=== PATIENT | female | born 1955 | race Caucasian/White ===

== ENCOUNTER 2016-08-15 15:12 | Inpatient (IN) | payer MEDICARE, OTHER ==
[~2016-08-15] VITALS: Ht 152.4 cm; Wt 44.5 kg
--- NOTE | 2016-08-15 15:20 | NUR ---
DR ZHU AT THE BEDSIDE FOR EVAL AND EXAM.
[2016-08-15] MEDS ORDERED: diphenhydrAMINE 50 MG/1 ML VIAL IM ONE (15:30)
[2016-08-15] MEDS ORDERED: HALOPERIDOL LACTATE 5 MG/1 ML VIAL IM ONE (15:30)
[2016-08-15] MEDS ORDERED: LORA-258 PO (15:34)
[2016-08-15] MEDS ORDERED: QUET25TA PO (15:34)
[2016-08-15] MEDS ORDERED: ACET650T10 PO (15:34)
[2016-08-15] MEDS ORDERED: ASPI81TA31 PO (15:34)
[2016-08-15] MEDS ORDERED: DIVA250T4 PO (15:34)
[2016-08-15] MEDS ORDERED: BENZ2TAB7 PO (15:34)
[2016-08-15] MEDS ORDERED: BENZ2AMP3 PO (15:34)
[2016-08-15] MEDS ORDERED: TEMA7.5C PO (15:34)
[2016-08-15] MEDS ORDERED: PANT40TA2 PO (15:34)
[2016-08-15] MEDS ORDERED: diphenhydrAMINE 50 MG/1 ML VIAL ONE (15:36)
[2016-08-15] MEDS ORDERED: HALOPERIDOL LACTATE 5 MG/1 ML VIAL ONE (15:36)
--- NOTE | 2016-08-15 16:05 | NUR ---
PT REMAINS AGITATED, AWRE. INCREASED OBSERVATION.
--- NOTE | 2016-08-15 16:10 | NUR ---
TRIED MULTIPLE TIMES TO DO EKG ON PT, BUT SOON PT IS TOUCHED SHE START SWINGING AND KICKING AT STAFF. PT ALSO WILL NOT ALLOW BLOOD DRAW. AWARE.
[2016-08-15] MEDS ORDERED: LORAZEPAM 2 MG/1 ML VIAL ONE ×2 (16:15→19:40)
[2016-08-15] MEDS ORDERED: LORAZEPAM 2 MG/1 ML VIAL IM ONE ×2 (16:15→19:30)
--- NOTE | 2016-08-15 16:40 | NUR ---
PT IS RESTING W/ BOTH EYES CLOSED IN POSTION, STILL BECOMES AGITATED WHEN TOUCHED AND AGGRESSIVE, MD NOTIFIED.
[2016-08-15] MEDS ORDERED: OLANZAPINE 10 MG VIAL IM ONE ×2 (16:45→16:52)
[2016-08-15] MEDS ORDERED: chlorproMAZINE 50 MG/2 ML AMPUL IM ONE (17:15)
[2016-08-15] MEDS ORDERED: chlorproMAZINE 50 MG/2 ML AMPUL ONE (17:29)
[2016-08-15 17:35] LABS: BASOPHILS # (AUTO) 0.1 K/uL (0.0-8.0); EOSINOPHILS # (AUTO) 0.1 K/uL (0.0-0.7); EOSINOPHILS % (AUTO) 1.5 % (0.0-7.0); HEMATOCRIT 36.8 % (37-47); HEMOGLOBIN 12.4 G/DL (12.0-16.0); LYMPHOCYTES # (AUTO) 1.6 K/UL (0.8-4.8); LYMPHOCYTES % (AUTO) 25.8 % (20.5-51.5); MEAN CORPUSCULAR HEMOGLOBIN 31.1 UUG (27.0-31.0); MEAN CORPUSCULAR HGB CONC 34 g/dL (32.0-37.0); MEAN CORPUSCULAR VOLUME 92.8 FL (81.0-99.0); MONOCYTES # (AUTO) 0.6 K/UL (0.1-1.30); MONOCYTES % (AUTO) 9.6 % (0.0-11.0); NEUTROPHILS # (AUTO) 3.8 K/UL (1.8-8.9); NEUTROPHILS % (AUTO) 61.1 % (38.5-71.5); PLATELET COUNT (AUTO) 420 K/UL (150-450); RED BLOOD CELL COUNT(AUTO) 3.97 MIL/UL (4.2-5.4); WHITE BLOOD COUNT (AUTO) 6.2 K/UL (4.0-11.2)
--- NOTE | 2016-08-15 17:44 | NUR ---
FOOD AND FLUIDS PROVIDED, NO PROBLEM W/ SWALLOWING. PT STILL REFUSED TO HAVE EKG DONE.
[2016-08-15 17:49] LABS: CARBON DIOXIDE 28 mmol/L (21-32); CHLORIDE 106 mmol/L (98-107); CREATININE 0.6 mg/dL (0.6-1.3); GLUCOSE 126 mg/dL (74-106); POTASSIUM 4.4 mmol/L (3.5-5.1); UREA NITROGEN, BLOOD 16 mg/dL (7-18)
[2016-08-15 17:56] LABS: ACETAMINOPHEN 3.4 ug/mL (10-30); ALANINE AMINOTRANSFERASE 20 U/L (14-59); ALKALINE PHOSPHATASE 97 U/L (50-136); ASPARTATE AMINOTRANSFERASE 18 U/L (15-37); BILIRUBIN,DIRECT < 0.1 mg/dL (0.0-0.2); BILIRUBIN,TOTAL 0.1 mg/dL (0.2-1.0); TOTAL PROTEIN, SERUM 6.5 g/dL (6.4-8.2)
[2016-08-15 18:04] LABS: ETHANOL < 3 MG/DL (0-0)
--- NOTE | 2016-08-15 18:10 | NUR ---
DR ZHU MEDICALLY CLEARED THE PT, REGAREDLESS OF CT, CXRAY AND URINE, SINCE PT BECOMES COMBATIVE WHEN TOUCHED. SPOKE TO SARAI PETIT FROM PET, ETA 30 MIN.
--- NOTE | 2016-08-15 18:16 | NUR ---
[facility]SA COLLECTED AND SENT TO LAB, BELONGING LIST COMPLETED.
[2016-08-15] MEDS ORDERED: LORAZEPAM 2 MG/1 ML VIAL IV ONE (19:30)
[2016-08-15 19:32] LABS: *BILIRUBIN,URIN NEGATIVE (NEGATIVE); *BLOOD, URINE 1+ (NEGATIVE); *CLARITY,URINE CLEAR (CLEAR); *COLOR,URINE YELLOW (YELLOW); *KETONES,URINE NEGATIVE (NEGATIVE); *PROTEIN,URINE NEGATIVE (NEGATIVE); *UROBILINOGEN,URINE 0.2 E.U./dl (NORMAL); LEUKOCYTE ESTERASE ,URINE 1+ (NEGATIVE); NITRITE, URINE NEGATIVE (NEGATIVE); UGLUCOSE NEGATIVE (NEGATIVE)
--- NOTE | 2016-08-15 19:38 | NUR ---
Assumed care of patient from Velma DINH. Patient in bed, no complaint of pain noted. urine collected via in and out cath.
[2016-08-15 19:46] LABS: *AMPHETAMINE, URINE NEGATIVE (NEGATIVE); *BARBITURATE, URINE NEGATIVE (NEGATIVE); *CANNABINOID, URINE NEGATIVE (NEGATIVE); *COCCAINE, URINE NEGATIVE (NEGATIVE); *OPIATE, URINE NEGATIVE (NEGATIVE); *PHENCYCLIDINE SCREEN,URINE NEGATIVE (NEGATIVE)
[2016-08-15 19:55] LABS: BACTERIA,URINE FEW /HPF (NONE SEEN); SQUAMOUS EPITHELIAL CELL,UR FEW /HPF (NONE SEEN)
--- NOTE | 2016-08-15 20:00 | NUR ---
Patient is in need of 1 to 1 sitter. No sitter available at this time. enginehouse brakeman aware.
--- NOTE | 2016-08-15 20:02 | NUR ---
JOYCE c/w UTI. Will give IM shot of CTX now (no access) and recommend keflex 500mg PO TID x 5 days. Addendum: 08/15/16 at 2001 by DION Medically stable for psychiatric evaluation.
[2016-08-15] MEDS ORDERED: CEFTRIAXONE 1 G VIAL IM ONE (20:15)
[2016-08-15] MEDS ORDERED: CEFTRIAXONE 1 G VIAL ONE (20:58)
--- NOTE | 2016-08-15 21:30 | NUR ---
CLINICAL PHARMACY MANAGER AWARE OF 1 TO 1 SITTER NEEDS. NO SITTER AVAILABLE AT THIS TIME.
--- NOTE | 2016-08-15 22:59 | NUR ---
Patient had an episode of witnessed and assisted fall, no injury noted. No signs of injury /pain noted. Neurocheckzakiya LO. Call placed to Dr Richards for notification of incident. Addendum: 08/15/16 at 2305 by CAROL Patient had an episode of unwitnessed and unassisted fall, no injury noted. No signs of injury /pain noted. Neurocheckzakiya Alecia. Call placed to Dr Richards for notification of incident. Per patients roomate in 2b, patients head came in contact with one of the siderails from the [facility]. no bruising noted. ER aware, will continue to monitor.
--- NOTE | 2016-08-15 23:14 | NUR ---
Pt. admitted to MHU overflow , under care of Dr. Alvarez/Susie. Dx: Psychosis. Oh hold 5150 for Gravely Disabled, Danger to others. Belongs List completed
--- NOTE | 2016-08-15 23:22 | NUR ---
Dr Richards called back. no orders at this time. Continue to monitor on MHU overflow.
[2016-08-15 23:30] VITALS: BP 95/65
[2016-08-15] MEDS ORDERED: MAG HYDROX/AL HYDROX/SIMETH 30 ML LIQUID UDC PO PRN (23:30)
[2016-08-15] MEDS ORDERED: MAGNESIUM HYDROXIDE 30 ML LIQUID UDC PO PRN (23:30)
[2016-08-15] MEDS ORDERED: Medication Not On Formulary EA (Acetaminophen 650 MG) PO SCH (23:30)
--- NOTE | 2016-08-15 23:30 | NUR ---
Received patient from ER via [facility]. Dx: Psychosis under care of Dr. Richards and Dr. Alvarez. Patient is on 5150 hold expires 08/18/16 at 20:15. Patient is in no distress. Will continue to monitor.
[2016-08-16 04:00] VITALS: BP 96/65
[2016-08-16] MEDS ORDERED: ACETAMINOPHEN 325 MG TABLET PO PRN (08:00)
[2016-08-16] MEDS: PANTOPRAZOLE SODIUM 40 MG TABLET.DR PO SCH (08:13)
[2016-08-16] MEDS: ASPIRIN 81 MG TAB.CHEW PO SCH (08:13)
[2016-08-16 08:30] VITALS: BP 121/81
[2016-08-16] MEDS: LORAZEPAM 0.5 MG TABLET PO PRN ×2 (10:16→17:33)
--- NOTE | 2016-08-16 11:01 | NUR ---
pt is restless and getting out of bed ativan 0.5 mg po given per md orders.
[2016-08-16 12:00] VITALS: BP 98/62
[2016-08-16 13:00] VITALS: BP 107/71
--- NOTE | 2016-08-16 13:00 | NUR ---
GPS: Nursing Notes: Receiving Overflow Patient: Patient transfer from 2nd floor to room # 137-A, V/S: 107/71, 108, 18, 0/10, patient is selectively mute, poor impulse control, confused, disoriented, impaired judgment, poor insight, restless at times, redirected and reoriented during shift, on fall precautions, continue to monitor for safety, Dr. Richards examined the patient, no further orders were given.
--- NOTE | 2016-08-16 13:15 | NUR ---
transfer the pt to u via wheel chair in stable condition.
[2016-08-16] MEDS: BENZTROPINE MESYLATE 0.5 MG TABLET PO SCH ×2 (14:13→17:33)
[2016-08-16] MEDS: ACETAMINOPHEN 325 MG TABLET PO PRN (14:13)
[2016-08-16] MEDS: DIVALPROEX 250 MG TABLET.DR PO SCH ×2 (14:13→20:17)
[2016-08-16 16:00] VITALS: BP 92/58
[2016-08-16] MEDS: Z GUARD REMEDY PASTE 57 GM TUBE TOP SCH ×2 (17:29→20:21)
[2016-08-16 20:04] VITALS: BP 103/68
[2016-08-16] MEDS: QUETIAPINE FUMARATE 25 MG TABLET PO SCH (20:21)
--- NOTE | 2016-08-16 22:00 | NUR ---
received to care, up in jj chair, appearing restless at times, selectively mute. compliant with medications and staff direction. bedtime snack given. assisted to bed. as of 2200, she remains awake. no dsitress noted, will continue to monitor closely.
[2016-08-16] MEDS: ZOLPIDEM 5 MG TABLET PO PRN (22:19)
--- NOTE | 2016-08-16 22:19 | NUR ---
PRN ambien given, for insomnia.
--- NOTE | 2016-08-16 23:00 | NUR ---
appears to be asleep. no distress noted.
--- NOTE | 2016-08-17 06:00 | NUR ---
slept 8.5 hours. no distress noted.
[2016-08-17] MEDS: PANTOPRAZOLE SODIUM 40 MG TABLET.DR PO SCH (06:59)
[2016-08-17 07:30] VITALS: BP 98/69
[2016-08-17] MEDS: BENZTROPINE MESYLATE 0.5 MG TABLET PO SCH ×2 (09:35→17:28)
[2016-08-17] MEDS: DIVALPROEX 250 MG TABLET.DR PO SCH ×2 (09:35→20:21)
[2016-08-17] MEDS: ASPIRIN 81 MG TAB.CHEW PO SCH (09:35)
[2016-08-17] MEDS: Z GUARD REMEDY PASTE 57 GM TUBE TOP SCH ×2 (09:37→20:22)
--- NOTE | 2016-08-17 11:42 | NUR ---
Initial discharge instructions: Pt was residing at [facility] [[id number] [place] [address]].Spoke with Cliff at the facility who stated the pt will be needing a locked SNF due to elopement.Therefore,pt will be needing a SNF placement.Spoke with pt's ,Isaac [phone] who was informed [facility] will not be accepted back.SW will speak with pt,family,and MD regarding appropriate discharge plan.SW will form a safe and proper discharge.
[2016-08-17 16:00] VITALS: BP 96/63
--- NOTE | 2016-08-17 17:50 | NUR ---
GPS/RN- Lipid panel Dr Richards aware of patients elevated Lipid panel. no orders received at this time.
[2016-08-17] MEDS: MUPIROCIN 2% OINT 22 GM TUBE NS SCH (20:21)
[2016-08-17] MEDS: QUETIAPINE FUMARATE 25 MG TABLET PO SCH (20:21)
[2016-08-18] MEDS: PANTOPRAZOLE SODIUM 40 MG TABLET.DR PO SCH (06:25)
[2016-08-18 06:53] VITALS: BP 96/62
[2016-08-18 07:41] VITALS: BP 114/63
[2016-08-18] MEDS: BENZTROPINE MESYLATE 0.5 MG TABLET PO SCH ×2 (08:05→16:01)
[2016-08-18] MEDS: ASPIRIN 81 MG TAB.CHEW PO SCH (08:05)
[2016-08-18] MEDS: DIVALPROEX 250 MG TABLET.DR PO SCH ×2 (08:05→20:13)
[2016-08-18] MEDS: MUPIROCIN 2% OINT 22 GM TUBE NS SCH ×3 (08:06→20:14)
[2016-08-18] MEDS: Z GUARD REMEDY PASTE 57 GM TUBE TOP SCH ×2 (10:59→20:13)
[2016-08-18] MEDS: LORAZEPAM 1 MG TABLET PO PRN ×3 (12:07→21:26)
--- NOTE | 2016-08-18 12:51 | NUR ---
WOUND CARE CONSULT: PT BECOMES AGITATED AND COMBATIVE AT TIMES. SITTER AT BEDSIDE. MAYITO SCORE IS 19. RECOMMEND Z GUARD FOR LEFT BUTTOCK EXCORIATED AREA. KEEP SKIN CLEAN AND DRY. DISCUSSED WITH NURSING STAFF. PT ON COMFORT GEL MATTRESS. CONTINUE ALL SKIN PROTECTION MEASURES. MD IN AGREEMENT WITH PLAN OF CARE. Addendum: 08/18/16 at 1252 by ALEJANDRA KRISHNAMURTHY RN Amended: Links added.
[2016-08-18 16:20] VITALS: BP 112/63
--- NOTE | 2016-08-18 16:33 | NUR ---
PT IS VERY RESTLESS JUMPING OUT OF BED SCRATCHING THE STAFF PER MD ORDERS ATIVAN 1 MG PO GIVEN
--- NOTE | 2016-08-18 16:35 | NUR ---
PT REFUSED THE V/S
[2016-08-18 20:00] VITALS: BP 120/65
[2016-08-18] MEDS: QUETIAPINE FUMARATE 25 MG TABLET PO SCH (20:13)
[2016-08-18] MEDS: ACETAMINOPHEN 325 MG TABLET PO PRN (20:13)
[2016-08-19] MEDS: PANTOPRAZOLE SODIUM 40 MG TABLET.DR PO SCH (06:35)
--- NOTE | 2016-08-19 06:38 | NUR ---
PATIENT ASLEEP IN BED. SITTER AT BEDSIDE. PATIENT SLEPT A TOTAL OF 5 HOURS. ALL NEEDS ATTENDED.
[2016-08-19] MEDS: DIVALPROEX 250 MG TABLET.DR PO SCH ×2 (08:02→20:24)
[2016-08-19] MEDS: BENZTROPINE MESYLATE 0.5 MG TABLET PO SCH ×2 (08:02→16:16)
[2016-08-19] MEDS: ASPIRIN 81 MG TAB.CHEW PO SCH (08:03)
[2016-08-19] MEDS: Z GUARD REMEDY PASTE 57 GM TUBE TOP SCH ×2 (08:21→20:24)
[2016-08-19] MEDS: LORAZEPAM 1 MG TABLET PO PRN ×3 (08:21→19:22)
[2016-08-19] MEDS: MUPIROCIN 2% OINT 22 GM TUBE NS SCH ×2 (08:22→20:23)
[2016-08-19 08:26] VITALS: BP 98/71
--- NOTE | 2016-08-19 12:55 | NUR ---
PT IS COMBATIVE HITTING THE SITTER PER MD ORDERS ATIVAN 1MG PO GIVEN
[2016-08-19 15:08] VITALS: BP 120/75
--- NOTE | 2016-08-19 19:25 | NUR ---
RECEIVED PATIENT VERY AGITATED AND COMBATIVE. PATIENT CONTINUOUSLY CLIMBING OOB AND WHEN APPROACHED BECOMES COMBATIVE TOWARDS STAFF. PATIENT GIVEN ATIVAN 1MG PO PRN FOR AGITATION CRUSHED WITH CHOCOLATE PUDDING. PATIENT HAS VERY GOOD APPETITE AND COOPERATIVE WITH TAKING MEDICATION. 1:1 SITTER AT BEDSIDE. PATIENT REFUSED VITALS. WILL CONTINUE TO MONITOR.
[2016-08-19] MEDS: QUETIAPINE FUMARATE 25 MG TABLET PO SCH (20:23)
[2016-08-20 04:00] VITALS: BP 93/66
[2016-08-20] MEDS: PANTOPRAZOLE SODIUM 40 MG TABLET.DR PO SCH (06:28)
--- NOTE | 2016-08-20 06:38 | NUR ---
PATIENT ASLEEP IN BED. SITTER AT BEDSIDE. PATIENT SLEPT 5 HOURS AND 45 MINUTES. BED ALARM ON. CALL LIGHT IN REACH. ALL NEEDS ATTENDED.
[2016-08-20 07:27] VITALS: BP 102/64
[2016-08-20] MEDS: ASPIRIN 81 MG TAB.CHEW PO SCH (08:00)
[2016-08-20] MEDS: MUPIROCIN 2% OINT 22 GM TUBE NS SCH ×2 (08:00→20:03)
[2016-08-20] MEDS: DIVALPROEX 250 MG TABLET.DR PO SCH (08:00)
[2016-08-20] MEDS: BENZTROPINE MESYLATE 0.5 MG TABLET PO SCH ×2 (08:00→16:20)
[2016-08-20] MEDS: Z GUARD REMEDY PASTE 57 GM TUBE TOP SCH ×2 (08:01→20:06)
[2016-08-20] MEDS: LORAZEPAM 1 MG TABLET PO PRN (12:01)
[2016-08-20 15:17] VITALS: BP 100/64
--- NOTE | 2016-08-20 19:30 | NUR ---
REFUSED BP TAKEN. WHEN ATTEMPTED, STARTED TO STRIKE OUT. WANTED TO GET OUT OF BED. SAFETY INITIATED. 1:1 SITTER AT BEDSIDE. WILL CONTINUE TO MONITOR.
[2016-08-20 20:00] VITALS: BP 120/60
[2016-08-20] MEDS: QUETIAPINE FUMARATE 25 MG TABLET PO SCH (20:06)
[2016-08-20] MEDS: DIVALPROEX SPRINKLE 125 MG CAP.SPRINK PO SCH (20:06)
[2016-08-20] MEDS: ZOLPIDEM 5 MG TABLET PO PRN (22:14)
--- NOTE | 2016-08-21 06:14 | NUR ---
PATIENT ABLE TO SLEEP FOR A TOTAL OF 8.5 HOURS. NO ACUTE DISTRESS NOTED. CONFUSED, NEEDS CONSTANT REDIRECTION. CONTINUES WITH 1: SITTER AT BEDSIDE. KEPT CLEAN AND DRY. NEEDS ATTENDED
[2016-08-21] MEDS: PANTOPRAZOLE SODIUM 40 MG TABLET.DR PO SCH (06:25)
[2016-08-21 08:00] VITALS: BP 99/62
[2016-08-21] MEDS: BENZTROPINE MESYLATE 0.5 MG TABLET PO SCH ×2 (08:43→16:06)
[2016-08-21] MEDS: DIVALPROEX 250 MG TABLET.DR PO SCH (08:43)
[2016-08-21] MEDS: ASPIRIN 81 MG TAB.CHEW PO SCH (08:43)
[2016-08-21] MEDS: MUPIROCIN 2% OINT 22 GM TUBE NS SCH ×2 (08:44→20:36)
[2016-08-21] MEDS: Z GUARD REMEDY PASTE 57 GM TUBE TOP SCH ×2 (08:44→20:36)
--- NOTE | 2016-08-21 10:28 | NUR ---
PATIENT SEEN AND EXAMINED BY DR WALKER WITH NEW ORDERS AND NOTED.
[2016-08-21 11:42] VITALS: BP 108/64
[2016-08-21] MEDS: QUETIAPINE FUMARATE 25 MG TABLET PO SCH (16:06)
[2016-08-21 19:27] VITALS: BP 117/87
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
[2016-08-21] MEDS: DIVALPROEX SPRINKLE 125 MG CAP.SPRINK PO SCH (20:36)
[2016-08-22 04:26] VITALS: BP 99/63
[2016-08-22] MEDS: PANTOPRAZOLE SODIUM 40 MG TABLET.DR PO SCH (06:11)
[2016-08-22 06:48] LABS: BASOPHILS # (AUTO) 0.1 K/uL (0.0-8.0); EOSINOPHILS # (AUTO) 0.2 K/uL (0.0-0.7); EOSINOPHILS % (AUTO) 3.6 % (0.0-7.0); HEMATOCRIT 38.7 % (37-47); HEMOGLOBIN 12.5 G/DL (12.0-16.0); LYMPHOCYTES # (AUTO) 1.6 K/UL (0.8-4.8); LYMPHOCYTES % (AUTO) 28.3 % (20.5-51.5); MEAN CORPUSCULAR HGB CONC 32 g/dL (32.0-37.0); MEAN CORPUSCULAR VOLUME 92.7 FL (81.0-99.0); MONOCYTES # (AUTO) 0.5 K/UL (0.1-1.30); NEUTROPHILS # (AUTO) 3.4 K/UL (1.8-8.9); NEUTROPHILS % (AUTO) 58.1 % (38.5-71.5); PLATELET COUNT (AUTO) 395 K/UL (150-450); RED BLOOD CELL COUNT(AUTO) 4.17 MIL/UL (4.2-5.4); WHITE BLOOD COUNT (AUTO) 5.8 K/UL (4.0-11.2)
--- NOTE | 2016-08-22 06:50 | NUR ---
PT SLEPT WELL, 8 HRS PER SHIFT. NO ACUTE DISTRESS NOTED. 1:1 SITTER FOR SAFETY. ALL NEEDS MET. SAFETY MAINTAINED.
[2016-08-22 07:05] LABS: CREATININE 0.6 mg/dL (0.6-1.3); POTASSIUM 4.4 mmol/L (3.5-5.1)
[2016-08-22] MEDS: ASPIRIN 81 MG TAB.CHEW PO SCH (08:58)
[2016-08-22] MEDS: QUETIAPINE FUMARATE 25 MG TABLET PO SCH (08:59)
[2016-08-22] MEDS: Z GUARD REMEDY PASTE 57 GM TUBE TOP SCH ×2 (08:59→21:00)
[2016-08-22] MEDS: BENZTROPINE MESYLATE 0.5 MG TABLET PO SCH ×2 (08:59→16:31)
[2016-08-22] MEDS: DIVALPROEX 250 MG TABLET.DR PO SCH (08:59)
[2016-08-22] MEDS: MUPIROCIN 2% OINT 22 GM TUBE NS SCH ×2 (09:04→21:00)
[2016-08-22 12:00] VITALS: BP 103/70
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
--- NOTE | 2016-08-22 14:30 | NUR ---
CALLED DR FALLON RE NEEDS CONSCENT FOR THE ZYPREXA BUT HE STATED TO FAX A CONSCENT FORM TO HIM THEN HE WILL SIGN IT AND WILL FAX IT BACK TO ME.CONSCENT FORM FAXED TO THE NUMBER THAT HE PROVIDED TO ME.
[2016-08-22 16:00] VITALS: BP 101/67
--- NOTE | 2016-08-22 18:00 | NUR ---
PATIENT IS RESTING WITH SITTER AT THE BEDSIDE WITH NO AGGRESSIVE BEHAVIOR AT THIS TIME.STILL AWAITING FOR DR FALLON TO FAX TO US THE CONSCENT FOR ZYPREXA.
--- NOTE | 2016-08-22 20:00 | NUR ---
PATIENT IN BED, ALERT TO SELF, BUT CONFUSED. CALM AND COOPERATIVE AT THIS TIME. NO BEHAVIORS NOTED. NO ACUTE DISTRESS NOTED. 1:1 SITTER OBSERVATION FOR SAFETY. WILL CONTINUE TO PROVIDE SAFE AND THERAPEUTIC ENVIRONMENT AT ALL TIMES.
[2016-08-22 20:23] VITALS: BP 101/72
[2016-08-22] MEDS ORDERED: OLANZAPINE 2.5 MG TABLET PO SCH (21:00)
[2016-08-22] MEDS: DIVALPROEX SPRINKLE 125 MG CAP.SPRINK PO SCH (21:00)
[2016-08-23 06:11] VITALS: BP 128/75
[2016-08-23] MEDS: PANTOPRAZOLE SODIUM 40 MG TABLET.DR PO SCH (06:19)
--- NOTE | 2016-08-23 06:42 | NUR ---
PATIENT SLEPT FOR A TOTAL OF 7.15 HRS. NO ACUTE DISTRESS NOTED. CONFUSED, NEEDS CONSTANT REDIRECTION. CONTINUES ON 1:1 SITTER AT BEDSIDE FOR SAFETY. ON CONTACT ISOLATION MAINTAINED. KEPT CLEAN AND DRY. NEEDS ATTENDED. SAFETY PROVIDED.
[2016-08-23 07:59] VITALS: BP 119/75
[2016-08-23] MEDS: ASPIRIN 81 MG TAB.CHEW PO SCH (08:00)
[2016-08-23] MEDS: DIVALPROEX 250 MG TABLET.DR PO SCH (08:00)
[2016-08-23] MEDS: BENZTROPINE MESYLATE 0.5 MG TABLET PO SCH ×2 (08:00→16:03)
[2016-08-23] MEDS: Z GUARD REMEDY PASTE 57 GM TUBE TOP SCH ×2 (08:15→20:56)
[2016-08-23] MEDS: MUPIROCIN 2% OINT 22 GM TUBE NS SCH ×2 (08:15→20:55)
[2016-08-23 15:39] VITALS: BP 160/61
--- NOTE | 2016-08-23 19:30 | NUR ---
Patient received laying in bed, pt is awake disoriented and confused. Pt has episodes of striking out. Patient had bowel movement x1, assisted with diaper change by staff. Redness noted to buttocks, skin care provided. Bed in low and locked position. Remains on isolation of the nares. 1:1 sitter at bedside.
[2016-08-23 20:00] VITALS: BP 100/60
[2016-08-23] MEDS: DIVALPROEX SPRINKLE 125 MG CAP.SPRINK PO SCH (20:53)
[2016-08-23] MEDS ORDERED: OLANZAPINE 5 MG TABLET PO SCH (21:00)
[2016-08-23] MEDS ORDERED: OLANZAPINE 2.5 MG TABLET PO SCH (21:00)
--- NOTE | 2016-08-23 23:00 | NUR ---
[facility]. No acute distress noted. Safety measures maintained.
[2016-08-24] MEDS: PANTOPRAZOLE SODIUM 40 MG TABLET.DR PO SCH (06:22)
--- NOTE | 2016-08-24 06:37 | NUR ---
Patient slept well through out the night. Patient had bowel movement x1, changed by staff. Compliant with medications po this am in pudding. No aggressive behavior noted this am. 1:1 sitter at bedside. Remains on isolation of the nares.
[2016-08-24 08:00] VITALS: BP 113/56
[2016-08-24] MEDS: MUPIROCIN 2% OINT 22 GM TUBE NS SCH ×2 (08:11→20:25)
[2016-08-24] MEDS: BENZTROPINE MESYLATE 0.5 MG TABLET PO SCH ×2 (08:12→17:22)
[2016-08-24] MEDS: ASPIRIN 81 MG TAB.CHEW PO SCH (08:12)
[2016-08-24] MEDS: Z GUARD REMEDY PASTE 57 GM TUBE TOP SCH ×2 (08:12→20:27)
[2016-08-24] MEDS: DIVALPROEX 250 MG TABLET.DR PO SCH (08:12)
[2016-08-24] MEDS: LORAZEPAM 1 MG TABLET PO PRN ×2 (10:16→21:54)
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
--- NOTE | 2016-08-24 14:00 | NUR ---
Spoke to Dr. Teixeira in regard to patient in regard to discharge. Reported patient current behavior but also informed Psych MD of patient compliance. MD stated he would review everything and patient would likely go either today or tomorrow. Scabies rule out for patient. Infection Contol officer Anton came to assess and ruled it out. Patient is cleared medically.
--- NOTE | 2016-08-24 15:10 | NUR ---
DC Note: The patient will be discharged today to [facility]) [[address] [place] [address]; ] via ambulance at 5:30 pm. Ambulance must be scheduled for the patient. The patient will be going to bed 27B. Spoke with Tamika in admissions at the facility who stated that she would accept the patient today. Spoke with the patient's Isaac and he is aware and agreeable with the discharge plan. The patient will follow-up with lieutenant shift supervisor Dr. Pedroza and psychiatrist Dr. Klein at the facility. Addendum: 08/25/16 at 1500 by ERMIAS JIANG Patient will be discharge today 08/25/2016.
[2016-08-24 17:07] VITALS: BP 130/60
[2016-08-24] MEDS: SULFAMETH/TRIMETH 800/160 MG TABLET PO SCH ×2 (19:40→20:26)
--- NOTE | 2016-08-24 20:20 | NUR ---
DR JUAN MADE AWARE OF PT NOT BEING DISCHARGED DUE TO LOW BP/ LOW HR, WITH ORDER TO START NS @ 75CC/HR. DR. FALLON AWARE.
[2016-08-24 20:24] VITALS: BP 98/62
[2016-08-24] MEDS: DIVALPROEX SPRINKLE 125 MG CAP.SPRINK PO SCH (20:25)
[2016-08-24] MEDS: OLANZAPINE 5 MG TABLET PO SCH (20:26)
--- NOTE | 2016-08-24 20:27 | NUR ---
FIRST DOSE OF BACTRIM WAS GIVEN @ 1940.
[2016-08-24] MEDS ORDERED: OLANZAPINE 2.5 MG TABLET PO SCH (21:00)
[2016-08-24] MEDS: IV NS 1000 ML 1,000 ML IV PRN (21:47)
[2016-08-25] MEDS: ACETAMINOPHEN 325 MG TABLET PO PRN (01:30)
--- NOTE | 2016-08-25 05:20 | NUR ---
PT WAS GIVEN ATIVAN FOR RESTLESSNESS LAST NIGHT. PT IS COMBATIVE AT TIMES. PT IS NOW RESTING. SLEPT INTERMITTENTLY DURING SHIFT. IVF STILL INFUSING. SITTER AT BEDSIDE FOR SAFETY.
[2016-08-25 06:00] VITALS: BP 101/57
[2016-08-25] MEDS: PANTOPRAZOLE SODIUM 40 MG TABLET.DR PO SCH (06:11)
--- NOTE | 2016-08-25 08:00 | NUR ---
Confused, restless, pulled out IV. 1:1 sitter at bedside.
[2016-08-25] MEDS: MUPIROCIN 2% OINT 22 GM TUBE NS SCH ×2 (10:01→20:49)
[2016-08-25] MEDS: ASPIRIN 81 MG TAB.CHEW PO SCH (10:01)
[2016-08-25] MEDS: SULFAMETH/TRIMETH 800/160 MG TABLET PO SCH ×2 (10:01→20:48)
[2016-08-25] MEDS: DIVALPROEX 250 MG TABLET.DR PO SCH (10:01)
[2016-08-25] MEDS: BENZTROPINE MESYLATE 0.5 MG TABLET PO SCH ×2 (10:01→16:28)
[2016-08-25] MEDS: Z GUARD REMEDY PASTE 57 GM TUBE TOP SCH ×2 (10:02→20:49)
[2016-08-25] MEDS: LORAZEPAM 1 MG TABLET PO PRN ×2 (10:04→16:28)
--- NOTE | 2016-08-25 10:04 | NUR ---
Impulsive, with sudden movement, fall risk. Ativan po given. Resting after
[2016-08-25 12:08] VITALS: BP 137/61
[2016-08-25] MEDS: IV NS 1000 ML 1,000 ML IV PRN (14:19)
--- NOTE | 2016-08-25 15:00 | NUR ---
DC Note 08/24/16: The patient will be discharged today to [facility]) [[address] [place] [address]; ] via ambulance. Please schedule an ambulance for the patient. The patient will be going to bed 27B. Spoke with Tamika in admissions at the facility who stated that she would accept the patient today. Spoke with the patient's Isaac and he is aware and agreeable with the discharge plan. The patient will follow-up with cardiovascular radiologic technologist Dr. Pedroza and psychiatrist Dr. Klein at the facility. Addendum: 08/25/16 at 1500 by ERMIAS JIANG Patient will be discharged today 08/25/2016.
[2016-08-25] MEDS ORDERED: SULF1TAB47 PO (16:09)
[2016-08-25 16:30] VITALS: BP 89/56
--- NOTE | 2016-08-25 16:30 | NUR ---
Pulled out IV. Combative, scratching, kicking. Ativan po given. Still restless after
--- NOTE | 2016-08-25 16:30 | NUR ---
With discharge order to SNF, report given to Alexandria saldana [facility]. Patient pulled out IV/HL. Combative, scratching,ckicking
[2016-08-25 19:30] VITALS: BP 77/48
--- NOTE | 2016-08-25 19:30 | NUR ---
RECEIVED REPORT THAT PATIENT IS TO BE DISCHARGED AND TRANSFERRED TO [facility]. BP 77/48 BUT AND IS AWAKE, ALERT AND ASYMPTOMATIC. TRYING TO GET OOB. PATIENT IS UNABLE TO BE TRANSFERRED AT THIS TIME. MD AND FACILITY NOTIFIED OF CANCELED DISCHARGE. SITTER AT BEDSIDE FOR SAFETY. HAND TRIMMER AND CPC CODER AWARE. ALL NEEDS ATTENDED. WILL CONTINUE TO MONITOR.
--- NOTE | 2016-08-25 20:00 | NUR ---
NOTIFIED DR. MCDANIELS THAT PATIENTS BP DROPPED AND PATIENT IS UNABLE TO BE TRANSFERRED. NEW IV HEPLOCK STARTED TO RIGHT UPPER ARM #20 GAUGE. RECEIVED NEW ORDER FOR PATIENT TO RECEIVE 2L OF NS. WILL CONTINUE TO MONITOR.
[2016-08-25] MEDS: IV NS 1000 ML 1,000 ML IV SCH (20:28)
[2016-08-25 20:30] VITALS: BP 100/50
[2016-08-25] MEDS ORDERED: IV NORMAL SALINE 1000 ML BAG IV ONE (20:30)
--- NOTE | 2016-08-25 20:30 | NUR ---
IVF INFUSING TO RIGHT UPPER ARM ORDERED. BP 100/50. ALL OTHER VSS. WILL CONTINUE TO MONITOR.
[2016-08-25] MEDS: DIVALPROEX SPRINKLE 125 MG CAP.SPRINK PO SCH ×2 (21:00→22:52)
[2016-08-25] MEDS: OLANZAPINE 5 MG TABLET PO SCH ×2 (21:00→22:52)
--- NOTE | 2016-08-25 22:00 | NUR ---
RECEIVED ORDER FOR MITTENS TO BE PLACED. PATIENT IS ATTEMPTING TO PULL OUT IV AND SCRATCHING STAFF. SITTER AT BEDSIDE FOR SAFETY.
--- NOTE | 2016-08-26 03:30 | NUR ---
PATIENT AWAKE IN BED. BILATERAL MITTENS IN PLACE. PATIENT BIT IV TUBING AND HEPLOCK DISLODGED. CALLED ER STAFF TO HELP ASSISTING TO INSERT IV PATIENT IS EXTREMELY AGITATED AND COMBATIVE. NEW IV INSERTED TO RIGHT FA #20 GAUGE. SITTER AT BEDSIDE. WILL CONTINUE TO MONITOR.
--- NOTE | 2016-08-26 03:35 | NUR ---
RECHECKED PATIENTS VITALS. BP 98/57. ALL OTHER VSS. SITTER AT BEDSIDE FOR SAFETY.
--- NOTE | 2016-08-26 03:50 | NUR ---
PATIENT BIT IV TUBING AGAIN. AND IV HEPLOCK DISLODGED. DAY CARE PROVIDER NOTIFIED.
--- NOTE | 2016-08-26 04:25 | NUR ---
MITTENS REMOVED. PATIENT IS LAYING QUIETLY IN BED. SITTER AT BEDSIDE. WHEN APPROACHED WITH IV, PATIENT BECOMES VERY AGITATED AND AGGRESSIVE. PATIENT IS REFUSING IVF. VERY GOOD PO INTAKE WITH FLUIDS. WILL CONTINUE TO MONITOR AND NOTIFY MD.
[2016-08-26] MEDS: IV NS 1000 ML 1,000 ML IV SCH (05:58)
[2016-08-26 05:59] VITALS: BP 101/68
[2016-08-26] MEDS: PANTOPRAZOLE SODIUM 40 MG TABLET.DR PO SCH (06:12)
--- NOTE | 2016-08-26 06:36 | NUR ---
PATIENT ASLEEP IN BED. CALM. SITTER AT BEDSIDE. BP 101/68. ALL OTHER VSS. BED ALARM ON. ALL NEEDS ATTENDED. WILL CONTINUE TO MONITOR.
--- NOTE | 2016-08-26 09:35 | NUR ---
Patient refused discharge photography. Patient combative and striking out at staff. Able to redirect but patient refuses to allow photo.
[2016-08-26] MEDS: DIVALPROEX 250 MG TABLET.DR PO SCH (09:45)
[2016-08-26] MEDS: BENZTROPINE MESYLATE 0.5 MG TABLET PO SCH (09:45)
[2016-08-26] MEDS: SULFAMETH/TRIMETH 800/160 MG TABLET PO SCH (09:45)
[2016-08-26] MEDS: ASPIRIN 81 MG TAB.CHEW PO SCH (09:45)
[2016-08-26] MEDS: Z GUARD REMEDY PASTE 57 GM TUBE TOP SCH (09:45)
[2016-08-26] MEDS: MUPIROCIN 2% OINT 22 GM TUBE NS SCH (09:45)
--- NOTE | 2016-08-26 10:00 | NUR ---
Patient discharged from unit with playground supervisor. Report given to Sylvia at [facility]. Discharge packet including medications sent with patient. BP stable 108/65. No noted distress.
== END 2016-08-26 10:12 | DRG 885 ==
LOC: ER 15:12 → GPSOV 23:01 → GPS 08-16 13:06 → MED 08-17 23:33 → GPSOV 08-18 00:11
PROVIDERS: ADMIT Psychiatry & Neurology Psychiatry; ATTEND Psychiatry & Neurology Psychiatry
DX: F29 Unspecified psychosis not due to a substance or known physiological condition (principal); G92 Toxic encephalopathy; N39.0 Urinary tract infection, site not specified; D68.59 Other primary thrombophilia; F03.91 Unspecified dementia, unspecified severity, with behavioral disturbance; E03.9 Hypothyroidism, unspecified; E11.9 Type 2 diabetes mellitus without complications; I10 Essential (primary) hypertension; K21.9 Gastro-esophageal reflux disease without esophagitis; Z73.6 Limitation of activities due to disability; F20.0 Paranoid schizophrenia; Z22.322 Carrier or suspected carrier of Methicillin resistant Staphylococcus aureus
CPT/HCPCS: 36415; 51702; 70030-TC; 80307; 83605; 84443; 85025; 85730; 87040; 87086; 93005; 97001; A4663; G0480-TC; G6040-TC; J0696; J1200; J1630; J2060; J2358; J3230; J3490; J7030